=== PATIENT | female | born 1965 | race Native Hawaiian/Other Pacific Islander ===

== ENCOUNTER 2021-09-25 13:41 | Outpatient (CLI) | payer BC ==
[~2021-09-25 13:41] MED LIST: BUPR1SUBFM SL; ZOLP10TA2 PO
== END 2021-09-25 22:27 | disposition home or self-care (01) ==
LOC: RAD 13:41
PROVIDERS: ATTEND Pain Medicine Interventional Pain Medicine
DX: M54.17 Radiculopathy, lumbosacral region (principal)

== ENCOUNTER 2022-06-23 08:17 | Outpatient (CLI) | payer BC | END 2022-06-23 18:56 | disposition home or self-care (01) | LOC: US 08:17 | PROVIDERS: ATTEND Nurse Practitioner Family | DX: R74.8 Abnormal levels of other serum enzymes (principal) ==